=== PATIENT | male | born 1955 | race Caucasian/White ===

== ENCOUNTER 2022-05-28 05:10 | Day surgery (SDC) | payer OTHER ==
[~2022-05-28] VITALS: Ht 167.6 cm; Wt 68.0 kg
[~2022-05-28 05:10] MED LIST: DOXAZOSIN MESYLA1 MG PO; INSPRA25 MG PO; LIPITOR20 MG PO; LOSARTAN-HCTZ1 EAC1 PO; NORVASC5 MG PO; PANTOPRAZOLE SO40 M2 PO; PEPCID AC20 MG PO; ZOLOFT50 MG PO
[2022-05-28] MEDS ORDERED: PRILOSEC OTC20 MG PO (08:09)
== END 2022-05-28 10:50 | disposition home or self-care (01) ==
LOC: CIR.AMB 05:10
PROVIDERS: ATTEND Otolaryngology Otology & Neurotology
DX: J38.3 Other diseases of vocal cords (principal); D14.1 Benign neoplasm of larynx; R49.0 Dysphonia; C32.0 Malignant neoplasm of glottis; Z88.1 Allergy status to other antibiotic agents; Z20.822 Contact with and (suspected) exposure to COVID-19; I10 Essential (primary) hypertension; E78.5 Hyperlipidemia, unspecified